=== PATIENT | female | born 1965 | race Caucasian/White ===

== ENCOUNTER → 2021-02-09 | Outpatient (CLI) | payer OTHER | END | disposition home or self-care (01) | LOC: RAD 13:32 | PROVIDERS: ATTEND Physician Assistant | DX: S32.19XA Other fracture of sacrum, initial encounter for closed fracture (principal); S32.512A Fracture of superior rim of left pubis, initial encounter for closed fracture; S70.02XA Contusion of left hip, initial encounter; S32.592A Other specified fracture of left pubis, initial encounter for closed fracture; M62.89 Other specified disorders of muscle; S70.12XA Contusion of left thigh, initial encounter; X58.XXXA Exposure to other specified factors, initial encounter; Y93.89 Activity, other specified; Y92.89 Other specified places as the place of occurrence of the external cause; Y99.8 Other external cause status ==